=== PATIENT | male | born 1965 | race Caucasian/White ===

== ENCOUNTER 2016-09-18 05:51 | Inpatient (IN) | payer BC ==
--- NOTE | ~2016-09-18 | CN ---
Consultation Report [facility] [address] [place]. [address] NAME: LACHO ZELAYA : 63 STATUS : ADM Nova PAT#: [id number] AGE: 50 ADM/REG DATE : 09/18/16 MR#: [id number] REPORT SERV DATE: 09/18/16 DICTATED BY: CHELSEA IRELAND DATE: 09/18/16 REPORT STATUS : Draft TRANSCRIBED BY: MODL DATE: 09/18/16 CONSULTATION REPORT DATE OF CONSULTATION: Thank you for the opportunity to consult on this patient. HISTORY OF PRESENT ILLNESS: Mr. Zelaya is a 50-year-old man with a history of obstructive sleep apnea, on home CPAP, followed by Dr. Rose, but no previous history of chronic lung disease. We were consulted because of worsening dyspnea and increased oxygen needs. Mr. Zelaya has underlying significant cardiomyopathy and low normal left ventricular systolic function and had placement of a biventricular pacer with AICD. He did reasonably well, but had a rather long procedure, and following the procedure, had increased work of breathing and worsening hypoxemia. We were asked to see him because of that. We are starting him on BiPAP, though he will have to be moved to the intensive care unit for monitoring while on BiPAP. He also has spiked a fever since we initiated BiPAP. When I examined him in the cardiac short-stay unit, he was awake and alert, comfortable, though again more dyspneic. PAST MEDICAL HISTORY: His past medical history as noted above significant for the congestive heart failure. No prior label of chronic structural lung disease, though he does have obstructive sleep apnea as noted above. No significant smoking history. FAMILY HISTORY: Noncontributory to this presentation. SOCIAL HISTORY: Negative for tobacco abuse or alcohol abuse. REVIEW OF SYSTEMS: Review of 10 systems was performed and is positive for what was noted above. PHYSICAL EXAMINATION: GENERAL: On exam, he is awake and alert, tachypneic, but in no significant respiratory distress. HEENT: Normocephalic and atraumatic. NECK: Supple. No lymphadenopathy. No JVD. CHEST: Symmetric with good expansion bilaterally. LUNGS: He has bilateral crackles. CARDIOVASCULAR: He has S1 and S2, which are regular rate and rhythm. ABDOMEN: Benign. EXTREMITIES: He has no edema, no clubbing, no cyanosis. ASSESSMENT AND PLAN: Respiratory failure. He appears to have some pulmonary edema and has already received additional Lasix. We will also start him on BiPAP. He spiked a temperature, so I have requested a new measurement of his CBC and procalcitonin as well as Consultation Report [facility] [address] [place]. [address] NAME: LACHO ZELAYA : 63 STATUS : ADM Nova PAT#: [id number] AGE: 50 ADM/REG DATE : 09/18/16 MR#: [id number] REPORT SERV DATE: 09/18/16 DICTATED BY: CHELSEA IRELAND DATE: 09/18/16 REPORT STATUS : Draft TRANSCRIBED BY: MODL DATE: 09/18/16 giving him a dose of vancomycin. We will follow him with you. Please do not hesitate to contact me if I could be of any further assistance. REBA/KARMEN Chelsea Ireland M.D. / [id number] CC: Walter Metzger M.D.
[~2016-09-18 05:51] MED LIST: ASABAYER PO; ATRONASAL3 NAS; BETAPACE80 PO; CENTRUM TAB1 TAB PO; COREG6 PO; ELECTROLYTE; ELIQUIS 5 MG TAB5 MG PO; FISH-EPA1000 MG PO; FLONASE NAS; PRIN2.5 PO; PROTONIX PO; SINGULAIR1 PO; [UNRECOGNIZED DRUG - OTHER]; probiotic
[2016-09-18 06:37] LABS: BASOPHILS 0.2 %; BASOPHILS ABSOLUTE 0.02 10/3/uL (0.0-0.16); EOSINOPHILS 4.4 %; EOSINOPHILS ABSOLUTE 0.36 10/3/uL (0.0-0.53); HEMATOCRIT 43.6 % (40.0-51.0); HEMOGLOBIN 14.9 g/dL (13.6-17.8); IMMATURE GRANULOCYTES 0.7 %; IMMATURE GRANULOCYTES ABSOLUTE 0.06 10/3/uL (0.0-0.11); LYMPHOCYTES 32.6 %; LYMPHOCYTES ABSOLUTE 2.67 10/3/uL (0.67-4.30); MEAN CORPUS HGB CONC 34.2 g/dL (32.0-36.0); MEAN CORPUSCULAR HEMOGLOB 30.2 pg (26.0-34.0); MEAN CORPUSCULAR VOLUME 88.3 fL (80-100); MEAN PLATELET VOLUME 10.6 fL (9.2-13.0); MONOCYTES 7.7 %; MONOCYTES ABSOLUTE 0.63 10/3/uL (0.21-1.20); NEUTROPHILS 54.4 %; NEUTROPHILS ABSOLUTE 4.45 10/3/uL (2.02-8.40); PLATELET COUNT 166 10/3/uL (150-400); RBC DISTRIBUTION WIDTH 12.8 % (12.0-16.0); RED CELL COUNT 4.94 10/6/uL (4.7-6.1); WHITE BLOOD CELLS 8.2 10/3/uL (4.5-10.5)
[2016-09-18 06:40] LABS: MANUAL DIFF NO %
[2016-09-18 06:47] LABS: CALCIUM, SERUM 8.6 MG/DL (8.5-10.4); CHLORIDE, SERUM 111 MMOL/L (96-112); CO2 (CARBON DIOXIDE) 27 MMOL/L (24-34); CREATININE 0.86 MG/DL (0.70-1.30); GFR AFRICAN AMERICAN 116 ML/MIN (>=60); GFR NON AFRICAN AMERICAN 100 ML/MIN (>=60); GLUCOSE, SERUM 105 MG/DL (60-99); SODIUM, SERUM 145 MMOL/L (135-148)
[2016-09-18 06:48] LABS: BUN (BLOOD UREA NITROGEN) 14 MG/DL (6-23)
[2016-09-18 17:02] LABS: BASOPHILS 0.1 %; BASOPHILS ABSOLUTE 0.01 10/3/uL (0.0-0.16); EOSINOPHILS 0.4 %; EOSINOPHILS ABSOLUTE 0.08 10/3/uL (0.0-0.53); HEMOGLOBIN 15.5 g/dL (13.6-17.8); IMMATURE GRANULOCYTES 0.3 %; IMMATURE GRANULOCYTES ABSOLUTE 0.06 10/3/uL (0.0-0.11); LYMPHOCYTES 6.8 %; LYMPHOCYTES ABSOLUTE 1.29 10/3/uL (0.67-4.30); MEAN CORPUS HGB CONC 33.7 g/dL (32.0-36.0); MEAN CORPUSCULAR HEMOGLOB 30.2 pg (26.0-34.0); MEAN CORPUSCULAR VOLUME 89.7 fL (80-100); MEAN PLATELET VOLUME 10.9 fL (9.2-13.0); MONOCYTES 5.3 %; NEUTROPHILS 87.1 %; NEUTROPHILS ABSOLUTE 16.44 10/3/uL (2.02-8.40); PLATELET COUNT 146 10/3/uL (150-400); RBC DISTRIBUTION WIDTH 12.7 % (12.0-16.0); RED CELL COUNT 5.13 10/6/uL (4.7-6.1)
[2016-09-18 17:04] LABS: MANUAL DIFF NO %; WHITE BLOOD CELLS 18.9 10/3/uL (4.5-10.5)
[2016-09-18 21:25] LABS: ASCORBIC ACID (UR NOT ORDER) NEG (NEG); BILIRUBIN, URINE NEGATIVE (NEG); KETONE, URINE NEGATIVE (NEG); LEUKOCYTE ESTERASE(NOT OR NEG (NEG); WBC (NOT ORDERED) (RFLEX) 1 (0-5)
[2016-09-19 04:43] LABS: BUN (BLOOD UREA NITROGEN) 15 MG/DL (6-23); CALCIUM, SERUM 8.4 MG/DL (8.5-10.4); CHLORIDE, SERUM 108 MMOL/L (96-112); CO2 (CARBON DIOXIDE) 27 MMOL/L (24-34); GFR AFRICAN AMERICAN 120 ML/MIN (>=60); GFR NON AFRICAN AMERICAN 103 ML/MIN (>=60); GLUCOSE, SERUM 115 MG/DL (60-99); POTASSIUM, SERUM 4.1 MMOL/L (3.5-5.3); SODIUM, SERUM 143 MMOL/L (135-148)
[2016-09-20 06:10] LABS: BASOPHILS 0.1 %; BASOPHILS ABSOLUTE 0.01 10/3/uL (0.0-0.16); EOSINOPHILS ABSOLUTE 0.27 10/3/uL (0.0-0.53); HEMOGLOBIN 13.6 g/dL (13.6-17.8); IMMATURE GRANULOCYTES 0.5 %; IMMATURE GRANULOCYTES ABSOLUTE 0.07 10/3/uL (0.0-0.11); LYMPHOCYTES 14.3 %; LYMPHOCYTES ABSOLUTE 1.88 10/3/uL (0.67-4.30); MEAN CORPUS HGB CONC 33.7 g/dL (32.0-36.0); MEAN CORPUSCULAR HEMOGLOB 30.1 pg (26.0-34.0); MEAN CORPUSCULAR VOLUME 89.4 fL (80-100); MEAN PLATELET VOLUME 11.4 fL (9.2-13.0); MONOCYTES 7.2 %; MONOCYTES ABSOLUTE 0.95 10/3/uL (0.21-1.20); NEUTROPHILS 75.9 %; PLATELET COUNT 106 10/3/uL (150-400); RBC DISTRIBUTION WIDTH 12.3 % (12.0-16.0); RED CELL COUNT 4.52 10/6/uL (4.7-6.1); WHITE BLOOD CELLS 13.2 10/3/uL (4.5-10.5)
[2016-09-20 06:21] LABS: HEMATOCRIT 40.4 % (40.0-51.0); MANUAL DIFF NO %
[2016-09-20 06:30] LABS: BUN (BLOOD UREA NITROGEN) 15 MG/DL (6-23); CALCIUM, SERUM 8.4 MG/DL (8.5-10.4); CHLORIDE, SERUM 105 MMOL/L (96-112); CO2 (CARBON DIOXIDE) 25 MMOL/L (24-34); CREATININE 0.76 MG/DL (0.70-1.30); GFR AFRICAN AMERICAN 122 ML/MIN (>=60); GFR NON AFRICAN AMERICAN 106 ML/MIN (>=60); GLUCOSE, SERUM 134 MG/DL (60-99); POTASSIUM, SERUM 3.7 MMOL/L (3.5-5.3); SODIUM, SERUM 141 MMOL/L (135-148)
[2016-09-20] MEDS ORDERED: AUG875 PO (10:34)
[2016-09-20] MEDS ORDERED: ULTRAM50 PO (10:35)
== END 2016-09-20 13:36 | disposition home or self-care (01) | DRG 226 ==
LOC: CORLMH 05:51 → SSU1 05:55 → CCU 18:11 → 5NO 09-19 14:13
PROVIDERS: Internal Medicine Cardiovascular Disease; Internal Medicine Pulmonary Disease
PROC: 02PA0MZ Removal of Cardiac Lead from Heart, Open Approach (ICD-10-PCS; principal; 2016-09-18)
PROC: 02HK3KZ Insertion of Defibrillator Lead into Right Ventricle, Percutaneous Approach (ICD-10-PCS; 2016-09-18)
PROC: 0JH609Z Insertion of Cardiac Resynchronization Defibrillator Pulse Generator into Chest Subcutaneous Tissue and Fascia, Open Approach (ICD-10-PCS; 2016-09-18)
PROC: 02H43KZ Insertion of Defibrillator Lead into Coronary Vein, Percutaneous Approach (ICD-10-PCS; 2016-09-18)
PROC: 0JPT0PZ Removal of Cardiac Rhythm Related Device from Trunk Subcutaneous Tissue and Fascia, Open Approach (ICD-10-PCS; 2016-09-18)
DX: I42.0 Dilated cardiomyopathy (principal); J96.91 Respiratory failure, unspecified with hypoxia; I50.22 Chronic systolic (congestive) heart failure; G47.33 Obstructive sleep apnea (adult) (pediatric); Z95.0 Presence of cardiac pacemaker
CPT/HCPCS: 33225; 33233; 33249; 71010; 80048; 81001; 83605; 83735; 84145; 85025; 87040; 87070; 87205; 87641; 93005; 93641; 94660; A9270-GY; C1769; C1882; C1887; C1892; C1894; C1895; C1900; C8929; J0690; J1940; J2250; J2370; J2405; J3010; J3370; Q9957; Q9967